=== PATIENT | male | born 1995 ===

== ENCOUNTER 2023-08-19 17:36 | Emergency (ER) | payer SELFPAY ==
[2023-08-19 17:54] VITALS: BP 142/98; PULSE 94
== END 2023-08-19 17:59 ==
LOC: MW.ED 17:36
DX: Z00.00 Encounter for general adult medical examination without abnormal findings (principal); Z79.899 Other long term (current) drug therapy; Z91.048 Other nonmedicinal substance allergy status
CPT/HCPCS: 99283